=== PATIENT | female | born 1950 | race Caucasian/White ===

== ENCOUNTER 2020-12-13 13:53 | Inpatient (IN) ==
[2020-12-13 15:18] LABS: Basophils % 0.2 %; Eosinophils % 0.3 %; Hematocrit 38.7 % (35.3-44.9); Hemoglobin 13.1 g/dL (11.5-15.4); Immature Granulocytes % 0.8 % (0-4); Lymphocytes # 0.7 K/mcL (0.6-4.6); Lymphocytes % 5.8 %; Mean Corpuscular HGB Conc 33.9 g/dL (31.6-35.5); Mean Corpuscular Hemoglobin 32.6 pg (28.0-33.3); Mean Corpuscular Volume 96.3 fL (83.0-100.0); Monocytes # 0.7 K/mcL (0.0-1.3); Monocytes % 5.8 %; Neutrophils # 10.8 K/mcL (1.6-8.9); Platelet Count 496 K/mcL (140-400); Red Blood Count 4.02 M/mcL (3.82-4.97); Red Cell Distribution Width 12.5 % (11.5-14.5); Segmented Neutrophils % 87.1 %; White Blood Count 12.4 K/mcL (4.3-11.1)
[2020-12-13 15:20] LABS: VBG HCO3 30 mEq/L (21-27); VBG PCO2 40 mmHg (41-51); VBG PH 7.47 pH Units (7.32-7.42); VBG PO2 38 mmHg (25-50)
[2020-12-13 15:26] LABS: INR 1.2; Prothrombin Time 12.9 Seconds (9.4-12.1)
[2020-12-13 15:27] LABS: Activated Partial Thrombo Time 30.2 Seconds (26.0-36.0)
[2020-12-13 15:34] LABS: Troponin I 0.03 ng/mL (< 0.04)
[2020-12-13 15:40] LABS: Alanine Aminotransferase 15 Units/L (7-52); Albumin 3.6 g/dL (3.5-5.7); Albumin/Globulin Ratio 0.8 (1.1-2.2); Alkaline Phosphatase 83 Units/L (34-104); Aspartate Amino Transferase 21 Units/L (13-39); BUN/Creatinine Ratio 25 (6-26); Bilirubin,Direct 0.1 mg/dL (0.0-0.2); Bilirubin,Indirect 0.4 mg/dL (0.0-1.0); Bilirubin,Total 0.5 mg/dL (0.3-1.0); Blood Urea Nitrogen 15 mg/dL (8-23); Calcium 9.6 mg/dL (8.6-10.3); Carbon Dioxide 30 mEq/L (23-29); Chloride 89 mEq/L (98-107); Globulin 4.3 g/dL (2.4-3.5); Glucose 106 mg/dL (70-105); Osmolality,Calculated 271 (280-300); Potassium 3.5 mEq/L (3.5-5.1); Sodium 130 mEq/L (136-145); Total Protein 7.9 g/dL (6.4-8.9); eGFR For African Americans > 60 (> 60); eGFR For Non-African Americans > 60 (> 60)
[2020-12-13] MEDS ORDERED: Ipratropium/Albuterol Neb 3 ML IH ONE ×2 (16:07→17:45)
[2020-12-13] MEDS ORDERED: methylPREDNISolone 125 MG/2 ML VIAL IVP ONE (16:07)
[2020-12-13 16:08] LABS: Bilirubin,Urine Negative (Negative); Blood,Urine Negative (Negative); Clarity,Urine Clear (Clear); Color,Urine Yellow (Yellow); Glucose,Urine (UA) Normal (Normal); Ketones,Urine Negative (Negative); Leukocyte Esterase,Urine Negative (Negative); Nitrite,Urine Negative (Negative); Protein,Urine Negative (Neg-Trace); Specific Gravity,Urine 1.015 (1.010-1.025); Urobilinogen,Urine Normal (Normal)
[2020-12-13] MEDS ORDERED: Naloxone 0.4 MG/ML INJ IVP PRN ×2 (17:45)
[2020-12-13] MEDS ORDERED: Ondansetron ODT 4 MG TAB.RAPDIS SL PRN (17:45)
[2020-12-13] MEDS ORDERED: levoFLOXacin 750 MG TABLET PO ONE (17:45)
[2020-12-13] MEDS ORDERED: methylPREDNISolone 125 MG/2 ML VIAL IVP SCH (19:15)
[2020-12-13 19:23] LABS: Adenovirus Not Detected (Not Detect); Bordetella Pertussis Not Detected (Not Detect); Chlamydophila pneumoniae Not Detected (Not Detect); Coronavirus 229E Not Detected (Not Detect); Coronavirus HKU1 Not Detected (Not Detect); Coronavirus NL63 Not Detected (Not Detect); Coronavirus OC43 Not Detected (Not Detect); Human Metapneumovirus Not Detected (Not Detect); Human Rhinovirus/Enterovirus Not Detected (Not Detect); Influenza A Subtype 2009 H1 Not Detected (Not Detect); Influenza B Not Detected (Not Detect); Mycoplasma pneumoniae Not Detected (Not Detect); Parainfluenza Virus 1 Not Detected (Not Detect); Parainfluenza Virus 2 Not Detected (Not Detect); Parainfluenza Virus 3 Not Detected (Not Detect); Parainfluenza Virus 4 Not Detected (Not Detect); Respiratory Syncytial Virus Not Detected (Not Detect); SARS-CoV-2 Not Detected (Not Detect)
[2020-12-13] MEDS ORDERED: Nicotine 21 MG PATCH.TD24 TD ONE (20:00)
[2020-12-13] MEDS: amLODIPine 5 MG TABLET PO SCH (21:50)
[2020-12-13] MEDS: lisinopriL 20 MG TABLET PO SCH (21:50)
[2020-12-13] MEDS: cefTRIAXone 1,000 MG in Water for inj. (sterile) 10 ML IVPB SCH (21:54)
[2020-12-13] MEDS: Azithromycin 500 MG in 0.9 % Sodium Chloride 250 ML IVPB SCH (22:00)
[2020-12-13] MEDS: methylPREDNISolone 125 MG/2 ML VIAL IVP SCH (22:00)
[2020-12-13] MEDS: 0.9 % Sodium Chloride 1,000 ML IVC SCH (22:01)
[2020-12-13] MEDS: Ipratropium/Albuterol Neb 3 ML IH SCH (22:16)
[2020-12-14] MEDS: Ipratropium/Albuterol Neb 3 ML IH SCH ×7 (00:44→20:48)
[2020-12-14] MEDS: Acetaminophen 325 MG TABLET PO PRN (02:19)
[2020-12-14] MEDS: methylPREDNISolone 125 MG/2 ML VIAL IVP SCH ×4 (05:25→21:42)
[2020-12-14] MEDS: *HR* Enoxaparin 40 MG/0.4 ML SYRINGE SQ SCH (05:27)
[2020-12-14 06:14] LABS: Basophils % 0.2 %; Hematocrit 36.7 % (35.3-44.9); Hemoglobin 12.4 g/dL (11.5-15.4); Immature Granulocytes % 0.8 % (0-4); Lymphocytes # 0.8 K/mcL (0.6-4.6); Lymphocytes % 9.4 %; Mean Corpuscular HGB Conc 33.8 g/dL (31.6-35.5); Mean Corpuscular Hemoglobin 32.2 pg (28.0-33.3); Mean Corpuscular Volume 95.3 fL (83.0-100.0); Mean Platelet Volume 8.9 fL (9.4-12.4); Monocytes # 0.4 K/mcL (0.0-1.3); Monocytes % 4.3 %; Neutrophils # 7.5 K/mcL (1.6-8.9); Platelet Count 487 K/mcL (140-400); Red Blood Count 3.85 M/mcL (3.82-4.97); Red Cell Distribution Width 12.4 % (11.5-14.5); Segmented Neutrophils % 85.3 %; White Blood Count 8.8 K/mcL (4.3-11.1)
[2020-12-14 06:36] LABS: BUN/Creatinine Ratio 28 (6-26); Blood Urea Nitrogen 15 mg/dL (8-23); Calcium 8.9 mg/dL (8.6-10.3); Carbon Dioxide 28 mEq/L (23-29); Chloride 91 mEq/L (98-107); Glucose 106 mg/dL (70-105); Osmolality,Calculated 271 (280-300); Potassium 3.4 mEq/L (3.5-5.1); Sodium 130 mEq/L (136-145); eGFR For African Americans > 60 (> 60); eGFR For Non-African Americans > 60 (> 60)
[2020-12-14] MEDS: lisinopriL 20 MG TABLET PO SCH (08:18)
[2020-12-14] MEDS: amLODIPine 5 MG TABLET PO SCH (08:19)
[2020-12-14] MEDS: 0.9 % Sodium Chloride 1,000 ML IVC SCH ×2 (08:21→18:27)
[2020-12-14] MEDS: ARIPiprazole 5 MG TABLET PO SCH (10:11)
[2020-12-14] MEDS: Cholecalciferol (D-3) 1,000 UNIT (25MCG) TABLET PO SCH (10:11)
[2020-12-14] MEDS: Multivit/Ca/Min/Fe/FA 1 TAB TABLET PO SCH (10:11)
[2020-12-14] MEDS: Gabapentin 400 MG CAPSULE PO PRN ×2 (10:17→21:42)
[2020-12-14] MEDS: tiZANidine 4 MG TABLET PO PRN ×2 (10:17→21:42)
[2020-12-14] MEDS: cefTRIAXone 1,000 MG in Water for inj. (sterile) 10 ML IVPB SCH (19:28)
[2020-12-14] MEDS ORDERED: traZODone 50 MG TABLET PO SCH (21:00)
[2020-12-14] MEDS ORDERED: Nicotine 21 MG PATCH.TD24 TD SCH (21:00)
[2020-12-14] MEDS: Azithromycin 500 MG in 0.9 % Sodium Chloride 250 ML IVPB SCH (21:42)
[2020-12-15] MEDS: Acetaminophen 325 MG TABLET PO PRN ×2 (03:09→08:43)
[2020-12-15] MEDS: Ipratropium/Albuterol Neb 3 ML IH SCH ×7 (03:25→17:50)
[2020-12-15] MEDS: Gabapentin 400 MG CAPSULE PO PRN ×3 (04:29→17:08)
[2020-12-15] MEDS: methylPREDNISolone 125 MG/2 ML VIAL IVP SCH ×3 (04:30→17:08)
[2020-12-15] MEDS: *HR* Enoxaparin 40 MG/0.4 ML SYRINGE SQ SCH (04:30)
[2020-12-15 06:00] LABS: Basophils % 0.1 %; Hematocrit 30.6 % (35.3-44.9); Hemoglobin 10.4 g/dL (11.5-15.4); Immature Granulocytes % 0.9 % (0-4); Lymphocytes # 0.5 K/mcL (0.6-4.6); Lymphocytes % 6.3 %; Mean Corpuscular Hemoglobin 32.6 pg (28.0-33.3); Mean Corpuscular Volume 95.9 fL (83.0-100.0); Mean Platelet Volume 8.6 fL (9.4-12.4); Monocytes # 0.5 K/mcL (0.0-1.3); Monocytes % 5.9 %; Neutrophils # 7.4 K/mcL (1.6-8.9); Platelet Count 403 K/mcL (140-400); Red Blood Count 3.19 M/mcL (3.82-4.97); Red Cell Distribution Width 12.6 % (11.5-14.5); Segmented Neutrophils % 86.8 %; White Blood Count 8.5 K/mcL (4.3-11.1)
[2020-12-15 06:16] LABS: BUN/Creatinine Ratio 26 (6-26); Blood Urea Nitrogen 14 mg/dL (8-23); Calcium 8.5 mg/dL (8.6-10.3); Carbon Dioxide 31 mEq/L (23-29); Chloride 96 mEq/L (98-107); Glucose 132 mg/dL (70-105); Osmolality,Calculated 276 (280-300); Potassium 3.7 mEq/L (3.5-5.1); Sodium 132 mEq/L (136-145); eGFR For African Americans > 60 (> 60); eGFR For Non-African Americans > 60 (> 60)
[2020-12-15] MEDS: 0.9 % Sodium Chloride 1,000 ML IVC SCH ×2 (06:30→13:24)
[2020-12-15] MEDS: Cholecalciferol (D-3) 1,000 UNIT (25MCG) TABLET PO SCH (08:44)
[2020-12-15] MEDS: amLODIPine 5 MG TABLET PO SCH (08:45)
[2020-12-15] MEDS: ARIPiprazole 5 MG TABLET PO SCH (08:45)
[2020-12-15] MEDS: Multivit/Ca/Min/Fe/FA 1 TAB TABLET PO SCH (08:45)
[2020-12-15] MEDS: lisinopriL 20 MG TABLET PO SCH (08:45)
[2020-12-15 11:45] LABS: Albumin/Globulin Ratio 0.9 (1.1-2.2); Bilirubin,Direct 0.1 mg/dL (0.0-0.2); Bilirubin,Indirect 0.2 mg/dL (0.0-1.0); Bilirubin,Total 0.3 mg/dL (0.3-1.0); Globulin 3.4 g/dL (2.4-3.5); Total Protein 6.4 g/dL (6.4-8.9)
[2020-12-15] MEDS: tiZANidine 4 MG TABLET PO PRN (11:50)
[2020-12-15] MEDS ORDERED: FLU Vac QV 21-22 (6Month+)/PF 0.5 ML SYRINGE IM ONE (13:26)
[2020-12-15 16:30] VITALS: BP 144/66; PULSE 81; RESP 15; TEMP 97.6; O2SAT 97
== END 2020-12-15 18:00 | DRG 194 ==
LOC: EMEROOGRE 13:53 → INPGRE 13:53
PROVIDERS: ADMIT Family Medicine; ATTEND Family Medicine

== ENCOUNTER 2021-01-13 18:31 | Inpatient (IN) ==
[2021-01-13] MEDS ORDERED: Ipratropium/Albuterol Neb 3 ML IH PRN (18:49)
[2021-01-13] MEDS ORDERED: Ondansetron ODT 4 MG TAB.RAPDIS SL PRN (18:49)
[2021-01-13] MEDS: Nicotine 21 MG PATCH.TD24 TD SCH ×2 (20:37→20:51)
[2021-01-13] MEDS: Gabapentin 400 MG CAPSULE PO SCH (20:37)
[2021-01-13] MEDS: BuPROPion SR (12 HR) 150 MG TABLET PO SCH (20:38)
[2021-01-13] MEDS: traZODone 50 MG TABLET PO SCH (20:38)
[2021-01-13] MEDS: Cefdinir 300 MG CAPSULE PO SCH (20:38)
[2021-01-13] MEDS: *HR* OxyCODONE/APAP 10/325 TABLET PO PRN (20:55)
[2021-01-13] MEDS: Budesonide/Formoterol 160/4.5 1 PUFF INH IH SCH (21:32)
[2021-01-14 07:33] LABS: Hematocrit 23.5 % (35.3-44.9); Hemoglobin 7.6 g/dL (11.5-15.4)
[2021-01-14] MEDS: BuPROPion SR (12 HR) 150 MG TABLET PO SCH ×2 (07:48→21:50)
[2021-01-14] MEDS: Cholecalciferol (D-3) 1,000 UNIT (25MCG) TABLET PO SCH (07:48)
[2021-01-14] MEDS: Cefdinir 300 MG CAPSULE PO SCH ×2 (07:48→21:50)
[2021-01-14] MEDS: modafiniL 100 MG TABLET PO SCH ×2 (07:48→14:24)
[2021-01-14] MEDS: Multivit/Ca/Min/Fe/FA 1 TAB TABLET PO SCH (07:48)
[2021-01-14] MEDS: Gabapentin 400 MG CAPSULE PO SCH ×3 (07:48→21:50)
[2021-01-14] MEDS: Ascorbic Acid 500 MG TABLET PO SCH (07:48)
[2021-01-14] MEDS: ARIPiprazole 5 MG TABLET PO SCH (07:49)
[2021-01-14] MEDS: Nicotine 21 MG PATCH.TD24 TD SCH (07:49)
[2021-01-14] MEDS: lisinopriL 20 MG TABLET PO SCH (07:49)
[2021-01-14] MEDS ORDERED: NON-FORMULARY MEDICATION 1 EACH EACH (Fluticasone/Umeclidin/Vilanter [Trelegy Ellipta 100- IH SCH (09:00)
[2021-01-14] MEDS: Budesonide/Formoterol 160/4.5 1 PUFF INH IH SCH ×2 (10:24→21:21)
[2021-01-14] MEDS: Tiotropium 10 INH DOSE IH SCH (10:24)
[2021-01-14] MEDS: *HR* OxyCODONE/APAP 10/325 TABLET PO PRN ×2 (15:57→21:49)
[2021-01-14] MEDS: traZODone 50 MG TABLET PO SCH (21:51)
[2021-01-15] MEDS: *HR* Enoxaparin 40 MG/0.4 ML SYRINGE SQ SCH (05:35)
[2021-01-15 07:17] LABS: Basophils % 0.2 %; Eosinophils # 0.2 K/mcL (0.0-0.6); Eosinophils % 1.7 %; Hemoglobin 7.5 g/dL (11.5-15.4); Immature Granulocytes % 1.6 % (0-4); Lymphocytes # 0.6 K/mcL (0.6-4.6); Lymphocytes % 5.6 %; Mean Corpuscular HGB Conc 32.6 g/dL (31.6-35.5); Mean Corpuscular Hemoglobin 32.3 pg (28.0-33.3); Mean Corpuscular Volume 99.1 fL (83.0-100.0); Mean Platelet Volume 8.6 fL (9.4-12.4); Monocytes % 9.2 %; Neutrophils # 9.2 K/mcL (1.6-8.9); Platelet Count 401 K/mcL (140-400); Red Blood Count 2.32 M/mcL (3.82-4.97); Red Cell Distribution Width 13.6 % (11.5-14.5); Segmented Neutrophils % 81.7 %; White Blood Count 11.3 K/mcL (4.3-11.1)
[2021-01-15 07:33] LABS: BUN/Creatinine Ratio 19 (6-26); Blood Urea Nitrogen 9 mg/dL (8-23); Calcium 8.2 mg/dL (8.6-10.3); Carbon Dioxide 35 mEq/L (23-29); Chloride 88 mEq/L (98-107); Chol/HDL Ratio 2.5 (0-4.9); Cholesterol 129 mg/dL (< 200); Glucose 79 mg/dL (70-105); HDL Cholesterol 52 mg/dL (40-59); LDL Cholesterol,Calculated 65 mg/dL (< 100); Osmolality,Calculated 262 (280-300); Potassium 3.9 mEq/L (3.5-5.1); Sodium 127 mEq/L (136-145); Triglycerides 61 mg/dL (< 150); eGFR For African Americans > 60 (> 60); eGFR For Non-African Americans > 60 (> 60)
[2021-01-15] MEDS: Multivit/Ca/Min/Fe/FA 1 TAB TABLET PO SCH (08:38)
[2021-01-15] MEDS: BuPROPion SR (12 HR) 150 MG TABLET PO SCH ×2 (08:38→20:00)
[2021-01-15] MEDS: Gabapentin 400 MG CAPSULE PO SCH ×3 (08:38→20:00)
[2021-01-15] MEDS: Cholecalciferol (D-3) 1,000 UNIT (25MCG) TABLET PO SCH (08:38)
[2021-01-15] MEDS: Cefdinir 300 MG CAPSULE PO SCH ×2 (08:38→20:00)
[2021-01-15] MEDS: modafiniL 100 MG TABLET PO SCH ×2 (08:39→16:07)
[2021-01-15] MEDS: Nicotine 21 MG PATCH.TD24 TD SCH (08:39)
[2021-01-15] MEDS: ARIPiprazole 5 MG TABLET PO SCH (08:39)
[2021-01-15] MEDS: lisinopriL 20 MG TABLET PO SCH (08:39)
[2021-01-15] MEDS: Ascorbic Acid 500 MG TABLET PO SCH (08:39)
[2021-01-15] MEDS: Tiotropium 10 INH DOSE IH SCH (10:06)
[2021-01-15] MEDS: Budesonide/Formoterol 160/4.5 1 PUFF INH IH SCH ×2 (10:07→19:59)
[2021-01-15] MEDS: *HR* OxyCODONE/APAP 10/325 TABLET PO PRN ×2 (10:57→19:56)
[2021-01-15] MEDS: traZODone 50 MG TABLET PO SCH (20:00)
[2021-01-16 04:49] LABS: Basophils % 0.3 %; Eosinophils # 0.2 K/mcL (0.0-0.6); Eosinophils % 1.9 %; Hematocrit 22.9 % (35.3-44.9); Hemoglobin 7.5 g/dL (11.5-15.4); Immature Granulocytes % 2.8 % (0-4); Lymphocytes # 0.7 K/mcL (0.6-4.6); Lymphocytes % 6.9 %; Mean Corpuscular HGB Conc 32.8 g/dL (31.6-35.5); Mean Corpuscular Hemoglobin 32.8 pg (28.0-33.3); Mean Platelet Volume 8.6 fL (9.4-12.4); Monocytes % 10.1 %; Platelet Count 350 K/mcL (140-400); Red Blood Count 2.29 M/mcL (3.82-4.97); White Blood Count 10.3 K/mcL (4.3-11.1)
[2021-01-16 05:03] LABS: BUN/Creatinine Ratio 21 (6-26); Blood Urea Nitrogen 12 mg/dL (8-23); Calcium 8.2 mg/dL (8.6-10.3); Carbon Dioxide 32 mEq/L (23-29); Chloride 88 mEq/L (98-107); Glucose 85 mg/dL (70-105); Osmolality,Calculated 259 (280-300); Sodium 125 mEq/L (136-145); eGFR For African Americans > 60 (> 60); eGFR For Non-African Americans > 60 (> 60)
[2021-01-16] MEDS: *HR* Enoxaparin 40 MG/0.4 ML SYRINGE SQ SCH (05:25)
[2021-01-16 07:53] VITALS: TEMP 98.3
[2021-01-16] MEDS: Tiotropium 10 INH DOSE IH SCH (08:19)
[2021-01-16] MEDS: Budesonide/Formoterol 160/4.5 1 PUFF INH IH SCH (08:19)
[2021-01-16] MEDS: lisinopriL 20 MG TABLET PO SCH (09:18)
[2021-01-16] MEDS: Cholecalciferol (D-3) 1,000 UNIT (25MCG) TABLET PO SCH (09:18)
[2021-01-16] MEDS: Nicotine 21 MG PATCH.TD24 TD SCH (09:18)
[2021-01-16] MEDS: Gabapentin 400 MG CAPSULE PO SCH (09:18)
[2021-01-16] MEDS: modafiniL 100 MG TABLET PO SCH (09:18)
[2021-01-16] MEDS: ARIPiprazole 5 MG TABLET PO SCH (09:19)
[2021-01-16] MEDS: Cefdinir 300 MG CAPSULE PO SCH (09:19)
[2021-01-16] MEDS: Multivit/Ca/Min/Fe/FA 1 TAB TABLET PO SCH (09:19)
[2021-01-16] MEDS: Ascorbic Acid 500 MG TABLET PO SCH (09:19)
[2021-01-16] MEDS: BuPROPion SR (12 HR) 150 MG TABLET PO SCH (09:19)
[2021-01-16 12:33] VITALS: BP 137/63; PULSE 75; RESP 19; O2SAT 90
[2021-01-16] MEDS: *HR* OxyCODONE/APAP 10/325 TABLET PO PRN (13:16)
== END 2021-01-16 13:30 | DRG 177 ==
LOC: INPGRE 18:32
PROVIDERS: ADMIT Family Medicine; ATTEND Family Medicine

== ENCOUNTER 2021-03-06 19:03 | Inpatient (IN) ==
[2021-03-06] MEDS ORDERED: Nicotine 21 MG PATCH.TD24 TD SCH (20:15)
[2021-03-06] MEDS ORDERED: Ondansetron ODT 4 MG TAB.RAPDIS SL PRN (20:15)
[2021-03-06] MEDS ORDERED: Saline Nasal Spray 44 ML BOTTLE NS PRN (21:00)
[2021-03-06] MEDS: *HR* OxyCODONE/APAP 10/325 TABLET PO PRN (22:16)
[2021-03-06] MEDS: Gabapentin 400 MG CAPSULE PO SCH (22:18)
[2021-03-06] MEDS: traZODone 50 MG TABLET PO SCH (22:19)
[2021-03-06] MEDS: BuPROPion SR (12 HR) 150 MG TABLET PO SCH (22:20)
[2021-03-06] MEDS: Budesonide/Formoterol 160/4.5 1 PUFF INH IH SCH (22:23)
[2021-03-07 04:35] LABS: Basophils % 0.4 %; Eosinophils # 0.1 K/mcL (0.0-0.6); Hematocrit 30.5 % (35.3-44.9); Hemoglobin 9.8 g/dL (11.5-15.4); Immature Granulocytes % 0.6 % (0-4); Lymphocytes # 1.3 K/mcL (0.6-4.6); Lymphocytes % 26.9 %; Mean Corpuscular HGB Conc 32.1 g/dL (31.6-35.5); Mean Corpuscular Hemoglobin 32.1 pg (28.0-33.3); Mean Platelet Volume 9.4 fL (9.4-12.4); Monocytes # 0.8 K/mcL (0.0-1.3); Monocytes % 16.4 %; Neutrophils # 2.7 K/mcL (1.6-8.9); Platelet Count 226 K/mcL (140-400); Red Blood Count 3.05 M/mcL (3.82-4.97); Red Cell Distribution Width 13.5 % (11.5-14.5); Segmented Neutrophils % 54.7 %
[2021-03-07 04:59] LABS: BUN/Creatinine Ratio 25 (6-26); Blood Urea Nitrogen 18 mg/dL (8-23); Calcium 8.7 mg/dL (8.6-10.3); Carbon Dioxide 31 mEq/L (23-29); Chloride 99 mEq/L (98-107); Glucose 101 mg/dL (70-105); Osmolality,Calculated 280 (280-300); Potassium 4.3 mEq/L (3.5-5.1); Sodium 134 mEq/L (136-145); eGFR For African Americans > 60 (> 60); eGFR For Non-African Americans > 60 (> 60)
[2021-03-07] MEDS: *HR* OxyCODONE/APAP 10/325 TABLET PO PRN ×3 (06:25→20:00)
[2021-03-07] MEDS: *HR* Enoxaparin 40 MG/0.4 ML SYRINGE SQ SCH (06:26)
[2021-03-07] MEDS: BuPROPion SR (12 HR) 150 MG TABLET PO SCH ×2 (08:32→20:01)
[2021-03-07] MEDS: Cholecalciferol (D-3) 1,000 UNIT (25MCG) TABLET PO SCH (08:32)
[2021-03-07] MEDS: Multivit/Ca/Min/Fe/FA 1 TAB TABLET PO SCH (08:32)
[2021-03-07] MEDS: Ascorbic Acid 500 MG TABLET PO SCH (08:32)
[2021-03-07] MEDS: lisinopriL 20 MG TABLET PO SCH (08:33)
[2021-03-07] MEDS: ARIPiprazole 5 MG TABLET PO SCH (08:33)
[2021-03-07] MEDS: carvediloL 6.25 MG TABLET PO SCH ×2 (08:33→16:36)
[2021-03-07] MEDS: Nicotine 21 MG PATCH.TD24 TD SCH (08:33)
[2021-03-07] MEDS: Gabapentin 400 MG CAPSULE PO SCH ×3 (08:33→20:01)
[2021-03-07] MEDS: Budesonide/Formoterol 160/4.5 1 PUFF INH IH SCH ×2 (11:51→19:32)
[2021-03-07] MEDS: Tiotropium 10 INH DOSE IH SCH (11:51)
[2021-03-07] MEDS: traZODone 50 MG TABLET PO SCH (21:43)
[2021-03-08] MEDS: Vancomycin 500 MG in 0.9 % Sodium Chloride Mini Bag 100 ML IVPB SCH ×3 (00:10→23:39)
[2021-03-08 05:23] LABS: Bilirubin,Urine Negative (Negative); Blood,Urine Negative (Negative); Clarity,Urine Clear (Clear); Color,Urine Yellow (Yellow); Glucose,Urine (UA) Normal (Normal); Ketones,Urine Negative (Negative); Leukocyte Esterase,Urine Trace (Negative); Nitrite,Urine Negative (Negative); Protein,Urine Negative (Neg-Trace); Specific Gravity,Urine 1.015 (1.010-1.025); Urobilinogen,Urine Normal (Normal)
[2021-03-08 05:29] LABS: Bacteria,Urine None Seen per hpf (None-Few); RBC,Urine 0-3 per hpf (0-3); Squamous Epithelial Cell,Urine Few per hpf (None-Few)
[2021-03-08] MEDS: *HR* OxyCODONE/APAP 10/325 TABLET PO PRN ×4 (06:10→23:39)
[2021-03-08] MEDS: *HR* Enoxaparin 40 MG/0.4 ML SYRINGE SQ SCH (06:10)
[2021-03-08] MEDS: carvediloL 6.25 MG TABLET PO SCH ×2 (09:21→16:21)
[2021-03-08] MEDS: Ascorbic Acid 500 MG TABLET PO SCH (09:21)
[2021-03-08] MEDS: Gabapentin 400 MG CAPSULE PO SCH ×3 (09:21→21:59)
[2021-03-08] MEDS: Multivit/Ca/Min/Fe/FA 1 TAB TABLET PO SCH (09:21)
[2021-03-08] MEDS: Cholecalciferol (D-3) 1,000 UNIT (25MCG) TABLET PO SCH (09:21)
[2021-03-08] MEDS: lisinopriL 20 MG TABLET PO SCH (09:21)
[2021-03-08] MEDS: BuPROPion SR (12 HR) 150 MG TABLET PO SCH ×2 (09:21→22:00)
[2021-03-08] MEDS: ARIPiprazole 5 MG TABLET PO SCH (09:22)
[2021-03-08] MEDS: Nicotine 21 MG PATCH.TD24 TD SCH (09:22)
[2021-03-08] MEDS: Budesonide/Formoterol 160/4.5 1 PUFF INH IH SCH ×2 (10:17→20:15)
[2021-03-08] MEDS: Tiotropium 10 INH DOSE IH SCH (10:19)
[2021-03-08] MEDS: traZODone 50 MG TABLET PO SCH (22:00)
[2021-03-09] MEDS: *HR* Enoxaparin 40 MG/0.4 ML SYRINGE SQ SCH (05:19)
[2021-03-09] MEDS: *HR* OxyCODONE/APAP 10/325 TABLET PO PRN ×3 (05:26→21:50)
[2021-03-09 06:20] LABS: Basophils % 0.5 %; Eosinophils # 0.1 K/mcL (0.0-0.6); Eosinophils % 1.3 %; Hematocrit 30.6 % (35.3-44.9); Hemoglobin 9.7 g/dL (11.5-15.4); Immature Granulocytes % 0.5 % (0-4); Lymphocytes # 1.2 K/mcL (0.6-4.6); Lymphocytes % 29.4 %; Mean Corpuscular HGB Conc 31.7 g/dL (31.6-35.5); Mean Corpuscular Hemoglobin 31.8 pg (28.0-33.3); Mean Corpuscular Volume 100.3 fL (83.0-100.0); Monocytes # 0.7 K/mcL (0.0-1.3); Monocytes % 17.5 %; Platelet Count 172 K/mcL (140-400); Red Blood Count 3.05 M/mcL (3.82-4.97); Red Cell Distribution Width 13.7 % (11.5-14.5); Segmented Neutrophils % 50.8 %
[2021-03-09 06:40] LABS: BUN/Creatinine Ratio 25 (6-26); Blood Urea Nitrogen 15 mg/dL (8-23); Carbon Dioxide 34 mEq/L (23-29); Chloride 96 mEq/L (98-107); Glucose 89 mg/dL (70-105); Osmolality,Calculated 278 (280-300); Potassium 3.9 mEq/L (3.5-5.1); Sodium 134 mEq/L (136-145); eGFR For African Americans > 60 (> 60); eGFR For Non-African Americans > 60 (> 60)
[2021-03-09] MEDS: Multivit/Ca/Min/Fe/FA 1 TAB TABLET PO SCH (08:43)
[2021-03-09] MEDS: ARIPiprazole 5 MG TABLET PO SCH (08:43)
[2021-03-09] MEDS: Cholecalciferol (D-3) 1,000 UNIT (25MCG) TABLET PO SCH (08:43)
[2021-03-09] MEDS: lisinopriL 20 MG TABLET PO SCH (08:43)
[2021-03-09] MEDS: Gabapentin 400 MG CAPSULE PO SCH ×3 (08:43→21:49)
[2021-03-09] MEDS: Nicotine 21 MG PATCH.TD24 TD SCH (08:44)
[2021-03-09] MEDS: BuPROPion SR (12 HR) 150 MG TABLET PO SCH ×2 (08:44→21:50)
[2021-03-09] MEDS: Ascorbic Acid 500 MG TABLET PO SCH (08:44)
[2021-03-09] MEDS: carvediloL 6.25 MG TABLET PO SCH ×2 (08:44→16:23)
[2021-03-09] MEDS: Budesonide/Formoterol 160/4.5 1 PUFF INH IH SCH ×2 (10:32→22:26)
[2021-03-09] MEDS: Tiotropium 10 INH DOSE IH SCH (10:32)
[2021-03-09] MEDS: Vancomycin 500 MG in 0.9 % Sodium Chloride Mini Bag 100 ML IVPB SCH (11:45)
[2021-03-09] MEDS: traZODone 50 MG TABLET PO SCH (21:50)
[2021-03-10] MEDS: Vancomycin 500 MG in 0.9 % Sodium Chloride Mini Bag 100 ML IVPB SCH ×2 (00:15→12:17)
[2021-03-10] MEDS: *HR* OxyCODONE/APAP 10/325 TABLET PO PRN ×3 (06:38→21:39)
[2021-03-10] MEDS: *HR* Enoxaparin 40 MG/0.4 ML SYRINGE SQ SCH (06:39)
[2021-03-10] MEDS: Gabapentin 400 MG CAPSULE PO SCH ×3 (08:59→21:40)
[2021-03-10] MEDS: BuPROPion SR (12 HR) 150 MG TABLET PO SCH ×2 (09:00→21:40)
[2021-03-10] MEDS: Multivit/Ca/Min/Fe/FA 1 TAB TABLET PO SCH (09:00)
[2021-03-10] MEDS: carvediloL 6.25 MG TABLET PO SCH ×2 (09:00→16:06)
[2021-03-10] MEDS: lisinopriL 20 MG TABLET PO SCH (09:00)
[2021-03-10] MEDS: Cholecalciferol (D-3) 1,000 UNIT (25MCG) TABLET PO SCH (09:01)
[2021-03-10] MEDS: ARIPiprazole 5 MG TABLET PO SCH (09:02)
[2021-03-10] MEDS: Nicotine 21 MG PATCH.TD24 TD SCH (09:02)
[2021-03-10] MEDS: Ascorbic Acid 500 MG TABLET PO SCH (09:03)
[2021-03-10] MEDS: Budesonide/Formoterol 160/4.5 1 PUFF INH IH SCH ×2 (11:13→21:53)
[2021-03-10] MEDS: Tiotropium 10 INH DOSE IH SCH (11:13)
[2021-03-10] MEDS: traZODone 50 MG TABLET PO SCH (21:39)
[2021-03-11] MEDS: Vancomycin 500 MG in 0.9 % Sodium Chloride Mini Bag 100 ML IVPB SCH ×2 (00:20→11:00)
[2021-03-11] MEDS: *HR* OxyCODONE/APAP 10/325 TABLET PO PRN ×4 (06:49→21:58)
[2021-03-11] MEDS: *HR* Enoxaparin 40 MG/0.4 ML SYRINGE SQ SCH (06:50)
[2021-03-11] MEDS: Gabapentin 400 MG CAPSULE PO SCH ×3 (08:58→21:58)
[2021-03-11] MEDS: BuPROPion SR (12 HR) 150 MG TABLET PO SCH ×2 (08:59→21:58)
[2021-03-11] MEDS: Multivit/Ca/Min/Fe/FA 1 TAB TABLET PO SCH (08:59)
[2021-03-11] MEDS: Cholecalciferol (D-3) 1,000 UNIT (25MCG) TABLET PO SCH (08:59)
[2021-03-11] MEDS: ARIPiprazole 5 MG TABLET PO SCH (08:59)
[2021-03-11] MEDS: Ascorbic Acid 500 MG TABLET PO SCH (08:59)
[2021-03-11] MEDS: lisinopriL 20 MG TABLET PO SCH (09:00)
[2021-03-11] MEDS: carvediloL 6.25 MG TABLET PO SCH ×2 (09:00→15:47)
[2021-03-11] MEDS: Nicotine 21 MG PATCH.TD24 TD SCH (09:00)
[2021-03-11] MEDS: Tiotropium 10 INH DOSE IH SCH (09:55)
[2021-03-11] MEDS: Budesonide/Formoterol 160/4.5 1 PUFF INH IH SCH ×2 (09:56→21:31)
[2021-03-11] MEDS: traZODone 50 MG TABLET PO SCH (21:57)
[2021-03-12] MEDS: Vancomycin 500 MG in 0.9 % Sodium Chloride Mini Bag 100 ML IVPB SCH ×2 (00:09→12:30)
[2021-03-12] MEDS: *HR* Enoxaparin 40 MG/0.4 ML SYRINGE SQ SCH (06:11)
[2021-03-12] MEDS: *HR* OxyCODONE/APAP 10/325 TABLET PO PRN ×3 (06:11→21:31)
[2021-03-12 07:37] LABS: Basophils % 0.4 %; Eosinophils % 0.6 %; Hematocrit 31.1 % (35.3-44.9); Hemoglobin 9.6 g/dL (11.5-15.4); Immature Granulocytes % 0.6 % (0-4); Lymphocytes # 1.3 K/mcL (0.6-4.6); Mean Corpuscular HGB Conc 30.9 g/dL (31.6-35.5); Mean Corpuscular Hemoglobin 31.3 pg (28.0-33.3); Mean Corpuscular Volume 101.3 fL (83.0-100.0); Mean Platelet Volume 10.1 fL (9.4-12.4); Monocytes # 0.7 K/mcL (0.0-1.3); Monocytes % 14.7 %; Neutrophils # 2.7 K/mcL (1.6-8.9); Platelet Count 204 K/mcL (140-400); Red Blood Count 3.07 M/mcL (3.82-4.97); Red Cell Distribution Width 13.8 % (11.5-14.5); Segmented Neutrophils % 56.7 %; White Blood Count 4.8 K/mcL (4.3-11.1)
[2021-03-12] MEDS: Tiotropium 10 INH DOSE IH SCH (07:46)
[2021-03-12 07:47] LABS: BUN/Creatinine Ratio 24 (6-26); Blood Urea Nitrogen 15 mg/dL (8-23); Carbon Dioxide 35 mEq/L (23-29); Chloride 99 mEq/L (98-107); Glucose 82 mg/dL (70-105); Osmolality,Calculated 282 (280-300); Potassium 4.1 mEq/L (3.5-5.1); Sodium 136 mEq/L (136-145); eGFR For African Americans > 60 (> 60); eGFR For Non-African Americans > 60 (> 60)
[2021-03-12] MEDS: Budesonide/Formoterol 160/4.5 1 PUFF INH IH SCH ×2 (07:47→20:42)
[2021-03-12] MEDS: ARIPiprazole 5 MG TABLET PO SCH (08:59)
[2021-03-12] MEDS: BuPROPion SR (12 HR) 150 MG TABLET PO SCH ×2 (08:59→21:31)
[2021-03-12] MEDS: carvediloL 6.25 MG TABLET PO SCH ×2 (08:59→15:44)
[2021-03-12] MEDS: Ascorbic Acid 500 MG TABLET PO SCH (08:59)
[2021-03-12] MEDS: Gabapentin 400 MG CAPSULE PO SCH ×3 (08:59→21:32)
[2021-03-12] MEDS: lisinopriL 20 MG TABLET PO SCH (08:59)
[2021-03-12] MEDS: Multivit/Ca/Min/Fe/FA 1 TAB TABLET PO SCH (08:59)
[2021-03-12] MEDS: Cholecalciferol (D-3) 1,000 UNIT (25MCG) TABLET PO SCH (08:59)
[2021-03-12] MEDS: Nicotine 21 MG PATCH.TD24 TD SCH (08:59)
[2021-03-12] MEDS: traZODone 50 MG TABLET PO SCH (21:32)
[2021-03-13] MEDS: Vancomycin 500 MG in 0.9 % Sodium Chloride Mini Bag 100 ML IVPB SCH ×2 (00:12→11:18)
[2021-03-13 05:40] LABS: eGFR For African Americans > 60 (> 60); eGFR For Non-African Americans > 60 (> 60)
[2021-03-13] MEDS: *HR* OxyCODONE/APAP 10/325 TABLET PO PRN ×4 (06:42→21:55)
[2021-03-13] MEDS: *HR* Enoxaparin 40 MG/0.4 ML SYRINGE SQ SCH (06:42)
[2021-03-13] MEDS: lisinopriL 20 MG TABLET PO SCH (07:49)
[2021-03-13] MEDS: Gabapentin 400 MG CAPSULE PO SCH ×3 (07:49→21:55)
[2021-03-13] MEDS: carvediloL 6.25 MG TABLET PO SCH ×2 (07:49→14:54)
[2021-03-13] MEDS: Cholecalciferol (D-3) 1,000 UNIT (25MCG) TABLET PO SCH (07:50)
[2021-03-13] MEDS: Ascorbic Acid 500 MG TABLET PO SCH (07:50)
[2021-03-13] MEDS: Multivit/Ca/Min/Fe/FA 1 TAB TABLET PO SCH (07:50)
[2021-03-13] MEDS: BuPROPion SR (12 HR) 150 MG TABLET PO SCH ×2 (07:50→21:55)
[2021-03-13] MEDS: Nicotine 21 MG PATCH.TD24 TD SCH (07:50)
[2021-03-13] MEDS: ARIPiprazole 5 MG TABLET PO SCH (07:50)
[2021-03-13] MEDS: Budesonide/Formoterol 160/4.5 1 PUFF INH IH SCH ×2 (11:00→21:30)
[2021-03-13] MEDS: Tiotropium 10 INH DOSE IH SCH (11:02)
[2021-03-13 20:48] VITALS: BP 165/79; PULSE 67; TEMP 98.1
[2021-03-13 21:34] VITALS: RESP 18; O2SAT 95
[2021-03-13] MEDS: traZODone 50 MG TABLET PO SCH (21:54)
== END 2021-03-13 22:15 | DRG 177 ==
LOC: INPGRE 19:21
PROVIDERS: ADMIT Family Medicine; ATTEND Family Medicine

== ENCOUNTER 2021-04-27 15:34 | Inpatient (IN) ==
[2021-04-27] MEDS ORDERED: Ipratropium/Albuterol Neb 3 ML IH ONE ×2 (16:52)
[2021-04-27 17:33] LABS: Basophils % 0.3 %; Eosinophils # 0.1 K/mcL (0.0-0.6); Eosinophils % 0.7 %; Hematocrit 39.7 % (35.3-44.9); Hemoglobin 13.9 g/dL (11.5-15.4); Immature Granulocytes % 0.5 % (0-4); Lymphocytes # 1.6 K/mcL (0.6-4.6); Lymphocytes % 11.3 %; Mean Corpuscular Hemoglobin 31.6 pg (28.0-33.3); Mean Corpuscular Volume 90.2 fL (83.0-100.0); Mean Platelet Volume 9.1 fL (9.4-12.4); Monocytes # 1.2 K/mcL (0.0-1.3); Monocytes % 8.2 %; Neutrophils # 11.2 K/mcL (1.6-8.9); Platelet Count 320 K/mcL (140-400); Red Cell Distribution Width 12.6 % (11.5-14.5); White Blood Count 14.2 K/mcL (4.3-11.1)
[2021-04-27 17:53] LABS: INR 1.1
[2021-04-27 17:56] LABS: Activated Partial Thrombo Time 31.8 Seconds (26.0-36.0)
[2021-04-27 18:04] LABS: Troponin I < 0.03 ng/mL (< 0.04)
[2021-04-27 18:18] LABS: Thyroid Stimulating Hormone 18.575 mcIU/mL (0.340-5.600)
[2021-04-27 18:30] LABS: Alanine Aminotransferase 14 Units/L (7-52); Albumin/Globulin Ratio 1.2 (1.1-2.2); Alkaline Phosphatase 92 Units/L (34-104); Aspartate Amino Transferase 18 Units/L (13-39); BUN/Creatinine Ratio 18 (6-26); Bilirubin,Total 0.3 mg/dL (0.3-1.0); Blood Urea Nitrogen 11 mg/dL (8-23); Calcium 8.7 mg/dL (8.6-10.3); Carbon Dioxide 27 mEq/L (23-29); Chloride 86 mEq/L (98-107); Globulin 3.3 g/dL (2.4-3.5); Glucose 152 mg/dL (70-105); Magnesium 1.4 mg/dL (1.6-2.6); Osmolality,Calculated 252 (280-300); Sodium 120 mEq/L (136-145); Total Protein 7.3 g/dL (6.4-8.9); eGFR For African Americans > 60 (> 60); eGFR For Non-African Americans > 60 (> 60)
[2021-04-27] MEDS ORDERED: 0.9 % Sodium Chloride 500 ML IVC ONE (18:38)
[2021-04-27] MEDS ORDERED: MethylPREDNISolone 40 MG/ML VIAL IVP ONE (18:56)
[2021-04-27] MEDS ORDERED: Mag Hydrox/Al Hydrox/Simeth 30 ML UDC PO PRN (21:37)
[2021-04-27] MEDS ORDERED: Ondansetron 4 MG/2 ML VIAL IVP PRN (21:37)
[2021-04-27] MEDS ORDERED: Naloxone 0.4 MG/ML INJ IVP PRN (21:37)
[2021-04-27] MEDS ORDERED: Nicotine 21 MG PATCH.TD24 TD SCH (21:37)
[2021-04-27] MEDS ORDERED: Ipratropium/Albuterol Neb 3 ML IH PRN (21:37)
[2021-04-27] MEDS ORDERED: MOM Conc 10 ML UD.LIQ PO PRN (21:37)
[2021-04-27] MEDS: MethylPREDNISolone 40 MG/ML VIAL IVP SCH (22:29)
[2021-04-27] MEDS: BuPROPion SR (12 HR) 150 MG TABLET PO SCH (22:44)
[2021-04-27] MEDS: 0.9 % Sodium Chloride 1,000 ML IVC SCH (23:15)
[2021-04-27] MEDS: levoFLOXacin 500 MG/100 ML 500 MG/100 ML BAG IVPB SCH (23:16)
[2021-04-27] MEDS: Gabapentin 400 MG CAPSULE PO SCH (23:18)
[2021-04-27] MEDS: *HR* OxyCODONE/APAP 10/325 TABLET PO PRN (23:19)
[2021-04-28] MEDS: MethylPREDNISolone 40 MG/ML VIAL IVP SCH ×4 (03:57→21:55)
[2021-04-28] MEDS: *HR* OxyCODONE/APAP 10/325 TABLET PO PRN ×3 (06:06→19:21)
[2021-04-28] MEDS: Vancomycin 500 MG in 0.9 % Sodium Chloride Mini Bag 100 ML IVPB SCH ×2 (06:07→18:34)
[2021-04-28 06:23] LABS: Hematocrit 37.8 % (35.3-44.9); Hemoglobin 12.9 g/dL (11.5-15.4); Immature Granulocytes % 0.5 % (0-4); Lymphocytes % 9.3 %; Mean Corpuscular HGB Conc 34.1 g/dL (31.6-35.5); Mean Corpuscular Hemoglobin 30.9 pg (28.0-33.3); Mean Corpuscular Volume 90.6 fL (83.0-100.0); Mean Platelet Volume 9.2 fL (9.4-12.4); Monocytes % 3.7 %; Platelet Count 274 K/mcL (140-400); Red Blood Count 4.17 M/mcL (3.82-4.97); Red Cell Distribution Width 12.5 % (11.5-14.5); Segmented Neutrophils % 86.4 %; White Blood Count 7.6 K/mcL (4.3-11.1)
[2021-04-28 06:24] LABS: Basophils % 0.1 %; Lymphocytes # 0.7 K/mcL (0.6-4.6); Monocytes # 0.3 K/mcL (0.0-1.3); Neutrophils # 6.6 K/mcL (1.6-8.9)
[2021-04-28 06:59] LABS: BUN/Creatinine Ratio 15 (6-26); Blood Urea Nitrogen 8 mg/dL (8-23); Calcium 8.5 mg/dL (8.6-10.3); Carbon Dioxide 27 mEq/L (23-29); Chloride 92 mEq/L (98-107); Glucose 105 mg/dL (70-105); Magnesium 1.9 mg/dL (1.6-2.6); Osmolality,Calculated 263 (280-300); Potassium 3.8 mEq/L (3.5-5.1); Sodium 127 mEq/L (136-145); eGFR For African Americans > 60 (> 60); eGFR For Non-African Americans > 60 (> 60)
[2021-04-28] MEDS: Aspirin Enteric Coated 81 MG Tablet PO SCH (09:28)
[2021-04-28] MEDS: Gabapentin 400 MG CAPSULE PO SCH ×3 (09:28→21:47)
[2021-04-28] MEDS: carvediloL 6.25 MG TABLET PO SCH ×2 (09:29→15:46)
[2021-04-28] MEDS: Cholecalciferol (D-3) 1,000 UNIT (25MCG) TABLET PO SCH (09:29)
[2021-04-28] MEDS: BuPROPion SR (12 HR) 150 MG TABLET PO SCH ×2 (09:29→21:47)
[2021-04-28] MEDS: ARIPiprazole 5 MG TABLET PO SCH (09:29)
[2021-04-28] MEDS: lisinopriL 20 MG TABLET PO SCH (09:30)
[2021-04-28] MEDS: Nicotine 21 MG PATCH.TD24 TD SCH (09:30)
[2021-04-28] MEDS: Ascorbic Acid 500 MG TABLET PO SCH (09:30)
[2021-04-28] MEDS: 0.9 % Sodium Chloride 1,000 ML IVC SCH (09:40)
[2021-04-28 14:11] LABS: Estimated Average Glucose 120 mg/dl; Hemoglobin A1C 5.8 %
[2021-04-28] MEDS ORDERED: cloNIDine HCL 0.1 MG TABLET PO ONE ×2 (21:38→23:11)
[2021-04-28] MEDS: Budesonide/Formoterol 80/4.5 1 PUFF INH IH SCH (21:38)
[2021-04-28] MEDS: traZODone 50 MG TABLET PO SCH (21:54)
[2021-04-28] MEDS: levoFLOXacin 500 MG/100 ML 500 MG/100 ML BAG IVPB SCH (21:55)
[2021-04-28] MEDS: amLODIPine 5 MG TABLET PO SCH (23:20)
[2021-04-29] MEDS: *HR* OxyCODONE/APAP 10/325 TABLET PO PRN ×4 (02:57→21:27)
[2021-04-29] MEDS: MethylPREDNISolone 40 MG/ML VIAL IVP SCH ×4 (02:58→21:42)
[2021-04-29 06:10] LABS: Basophils % 0.1 %; Hematocrit 36.3 % (35.3-44.9); Hemoglobin 12.2 g/dL (11.5-15.4); Immature Granulocytes % 0.9 % (0-4); Lymphocytes # 0.8 K/mcL (0.6-4.6); Lymphocytes % 7.5 %; Mean Corpuscular HGB Conc 33.6 g/dL (31.6-35.5); Mean Corpuscular Hemoglobin 30.7 pg (28.0-33.3); Mean Corpuscular Volume 91.4 fL (83.0-100.0); Mean Platelet Volume 9.2 fL (9.4-12.4); Monocytes # 0.4 K/mcL (0.0-1.3); Monocytes % 3.4 %; Neutrophils # 9.6 K/mcL (1.6-8.9); Platelet Count 277 K/mcL (140-400); Red Blood Count 3.97 M/mcL (3.82-4.97); Red Cell Distribution Width 12.7 % (11.5-14.5); Segmented Neutrophils % 88.1 %; White Blood Count 10.9 K/mcL (4.3-11.1)
[2021-04-29] MEDS: *HR* Enoxaparin 40 MG/0.4 ML SYRINGE SQ SCH (06:34)
[2021-04-29 06:39] LABS: BUN/Creatinine Ratio 21 (6-26); Blood Urea Nitrogen 14 mg/dL (8-23); Calcium 8.4 mg/dL (8.6-10.3); Carbon Dioxide 28 mEq/L (23-29); Chloride 91 mEq/L (98-107); Glucose 140 mg/dL (70-105); Osmolality,Calculated 265 (280-300); Potassium 4.2 mEq/L (3.5-5.1); Sodium 126 mEq/L (136-145); eGFR For African Americans > 60 (> 60); eGFR For Non-African Americans > 60 (> 60)
[2021-04-29] MEDS: Budesonide/Formoterol 80/4.5 1 PUFF INH IH SCH ×2 (08:01→22:13)
[2021-04-29] MEDS: Tiotropium 10 INH DOSE IH SCH (08:02)
[2021-04-29] MEDS: 0.9 % Sodium Chloride 1,000 ML IVC SCH ×2 (08:39→18:18)
[2021-04-29] MEDS: lisinopriL 20 MG TABLET PO SCH (08:40)
[2021-04-29] MEDS: BuPROPion SR (12 HR) 150 MG TABLET PO SCH ×2 (08:40→21:51)
[2021-04-29] MEDS: Gabapentin 400 MG CAPSULE PO SCH ×3 (08:40→21:51)
[2021-04-29] MEDS: carvediloL 6.25 MG TABLET PO SCH ×2 (08:40→17:20)
[2021-04-29] MEDS: ARIPiprazole 5 MG TABLET PO SCH (08:58)
[2021-04-29] MEDS: Aspirin Enteric Coated 81 MG Tablet PO SCH (10:02)
[2021-04-29] MEDS: Cholecalciferol (D-3) 1,000 UNIT (25MCG) TABLET PO SCH (10:02)
[2021-04-29] MEDS: Ascorbic Acid 500 MG TABLET PO SCH (10:02)
[2021-04-29] MEDS: Nicotine 21 MG PATCH.TD24 TD SCH (10:03)
[2021-04-29] MEDS: amLODIPine 5 MG TABLET PO SCH (13:41)
[2021-04-29] MEDS: levoFLOXacin 500 MG/100 ML 500 MG/100 ML BAG IVPB SCH (21:42)
[2021-04-29] MEDS: traZODone 50 MG TABLET PO SCH (21:51)
[2021-04-30] MEDS: MethylPREDNISolone 40 MG/ML VIAL IVP SCH ×4 (03:16→21:28)
[2021-04-30] MEDS: *HR* OxyCODONE/APAP 10/325 TABLET PO PRN ×4 (03:17→21:30)
[2021-04-30 05:00] LABS: Basophils % 0.1 %; Hematocrit 34.5 % (35.3-44.9); Hemoglobin 11.5 g/dL (11.5-15.4); Immature Granulocytes % 0.6 % (0-4); Lymphocytes # 0.8 K/mcL (0.6-4.6); Lymphocytes % 7.1 %; Mean Corpuscular HGB Conc 33.3 g/dL (31.6-35.5); Mean Corpuscular Hemoglobin 31.1 pg (28.0-33.3); Mean Corpuscular Volume 93.2 fL (83.0-100.0); Mean Platelet Volume 9.3 fL (9.4-12.4); Monocytes # 0.4 K/mcL (0.0-1.3); Monocytes % 3.5 %; Neutrophils # 9.8 K/mcL (1.6-8.9); Platelet Count 270 K/mcL (140-400); Red Cell Distribution Width 13.1 % (11.5-14.5); Segmented Neutrophils % 88.7 %
[2021-04-30 05:14] LABS: BUN/Creatinine Ratio 34 (6-26); Blood Urea Nitrogen 18 mg/dL (8-23); Carbon Dioxide 29 mEq/L (23-29); Chloride 95 mEq/L (98-107); Glucose 128 mg/dL (70-105); Osmolality,Calculated 272 (280-300); Potassium 3.8 mEq/L (3.5-5.1); Sodium 129 mEq/L (136-145); eGFR For African Americans > 60 (> 60); eGFR For Non-African Americans > 60 (> 60)
[2021-04-30] MEDS: *HR* Enoxaparin 40 MG/0.4 ML SYRINGE SQ SCH (06:00)
[2021-04-30] MEDS: 0.9 % Sodium Chloride 1,000 ML IVC SCH ×2 (06:09→16:40)
[2021-04-30] MEDS: Budesonide/Formoterol 80/4.5 1 PUFF INH IH SCH ×2 (07:54→21:57)
[2021-04-30] MEDS: Tiotropium 10 INH DOSE IH SCH (07:54)
[2021-04-30] MEDS: BuPROPion SR (12 HR) 150 MG TABLET PO SCH ×2 (09:08→21:28)
[2021-04-30] MEDS: lisinopriL 20 MG TABLET PO SCH (09:08)
[2021-04-30] MEDS: carvediloL 6.25 MG TABLET PO SCH ×2 (09:08→15:19)
[2021-04-30] MEDS: Ascorbic Acid 500 MG TABLET PO SCH (09:08)
[2021-04-30] MEDS: Aspirin Enteric Coated 81 MG Tablet PO SCH (09:08)
[2021-04-30] MEDS: Cholecalciferol (D-3) 1,000 UNIT (25MCG) TABLET PO SCH (09:08)
[2021-04-30] MEDS: ARIPiprazole 5 MG TABLET PO SCH (09:08)
[2021-04-30] MEDS: amLODIPine 5 MG TABLET PO SCH (09:08)
[2021-04-30] MEDS: Gabapentin 400 MG CAPSULE PO SCH ×3 (09:09→21:27)
[2021-04-30] MEDS: Nicotine 21 MG PATCH.TD24 TD SCH (09:09)
[2021-04-30] MEDS: traZODone 50 MG TABLET PO SCH (21:27)
[2021-04-30] MEDS: levoFLOXacin 500 MG/100 ML 500 MG/100 ML BAG IVPB SCH (21:28)
[2021-05-01] MEDS: MethylPREDNISolone 40 MG/ML VIAL IVP SCH ×2 (03:31→08:18)
[2021-05-01] MEDS: *HR* OxyCODONE/APAP 10/325 TABLET PO PRN ×2 (03:32→09:32)
[2021-05-01] MEDS: *HR* Enoxaparin 40 MG/0.4 ML SYRINGE SQ SCH (05:09)
[2021-05-01] MEDS: Nicotine 21 MG PATCH.TD24 TD SCH (07:29)
[2021-05-01 07:53] VITALS: PULSE 65; TEMP 98.1
[2021-05-01] MEDS: Cholecalciferol (D-3) 1,000 UNIT (25MCG) TABLET PO SCH (08:12)
[2021-05-01] MEDS: Gabapentin 400 MG CAPSULE PO SCH (08:12)
[2021-05-01] MEDS: Aspirin Enteric Coated 81 MG Tablet PO SCH (08:13)
[2021-05-01] MEDS: carvediloL 6.25 MG TABLET PO SCH (08:13)
[2021-05-01] MEDS: Ascorbic Acid 500 MG TABLET PO SCH (08:13)
[2021-05-01] MEDS: amLODIPine 5 MG TABLET PO SCH (08:13)
[2021-05-01] MEDS: ARIPiprazole 5 MG TABLET PO SCH (08:13)
[2021-05-01] MEDS: lisinopriL 20 MG TABLET PO SCH (08:13)
[2021-05-01] MEDS: BuPROPion SR (12 HR) 150 MG TABLET PO SCH (08:13)
[2021-05-01 09:50] VITALS: BP 169/71
[2021-05-01] MEDS: Tiotropium 10 INH DOSE IH SCH (10:09)
[2021-05-01] MEDS: Budesonide/Formoterol 80/4.5 1 PUFF INH IH SCH (10:09)
[2021-05-01 10:20] VITALS: RESP 18; O2SAT 98
== END 2021-05-01 11:30 ==
LOC: EMEROOGRE 15:34 → INPGRE 15:34
PROVIDERS: ADMIT Family Medicine; ATTEND Family Medicine